=== PATIENT | male | born 1960 | race African-American/Black ===

== ENCOUNTER 2016-09-06 09:45 | Day surgery (SDC) | payer BC ==
[~2016-09-06] VITALS: Ht 172.7 cm; Wt 81.4 kg
[2016-09-06 11:07] VITALS: Ht 172.7 cm; Wt 81.4 kg
[2016-09-06 11:19] VITALS: BP 120/67; PULSE 50; RESP 17
[2016-09-06] MEDS ORDERED: FENTAnyl 50 MCG/ML VIAL ONE (11:57)
[2016-09-06] MEDS ORDERED: MIDAZOLAM 1 MG/ML 2 ML INJ ONE ×2 (11:57)
[2016-09-06 12:21] VITALS: BP 120/67; PULSE 54; RESP 18
--- NOTE | 2016-09-06 12:26 | GILP ---
DATE OF PROCEDURE: NAME OF PROCEDURES: Colonoscopy and biopsy. SURGEON: Mitchell Piedra MD PREOPERATIVE DIAGNOSIS: Screening colonoscopy. POSTOPERATIVE DIAGNOSES 1. Colonoscopy all the way to the cecum. 2. Multiple small colon polyps were removed in the transverse colon as well as the sigmoid colon. 3. The patient was noted to have internal hemorrhoids. INDICATION FOR THE PROCEDURE: Mr. Agustin Clayton is a 56-year-old male patient who was scheduled for screening colonoscopy. The procedure and possible complications are well explained to the patient. The patient understood and consented to the procedure. DESCRIPTION OF PROCEDURE: Under the influence of fentanyl and Versed, the colonoscope was carefully introduced in the rectum and under direct vision, it was advanced all the way to the cecum. FINDINGS: The patient had a small polyp in the transverse colon and multiple small polyps in the si gmoid colon and they were removed using the biopsy forceps. He was noted to have internal hemorrhoi ds. He tolerated the procedure very well and there was no complication from the procedure. At the end o f the procedure, he was awake with stable vital signs and he was discharged home to the care of his family. IMPRESSION: 1. Colonoscopy all the way to the cecum. 2. Small transverse colon polyp and multiple small polyps in the sigmoid colon were removed using t he biopsy forceps. 3. Internal hemorrhoids. PLAN: 1. Await histopathology reports. 2. Next screening colonoscopy in 5 years. Dictated By: MITCHELL SUAREZ/MORENITA Conf#: [id number] DID#: [id number]
== END 2016-09-06 15:39 | disposition home or self-care (01) ==
LOC: GIL 09:45
PROVIDERS: ATTEND Internal Medicine Gastroenterology
DX: Z12.11 Encounter for screening for malignant neoplasm of colon (principal); D12.3 Benign neoplasm of transverse colon; D12.5 Benign neoplasm of sigmoid colon
CPT/HCPCS: 45380; 88305; J2250; J3010; Z7610